=== PATIENT | female | born 1980 | race Two or more races ===

== ENCOUNTER → 2019-03-02 | Outpatient (CLI) | payer OTHER | END | disposition home or self-care (01) | LOC: PRENATAL 09:00 | DX: O36.80X1 Pregnancy with inconclusive fetal viability, fetus 1 (principal) ==

== ENCOUNTER → 2019-04-06 | Outpatient (CLI) | payer OTHER | END | disposition home or self-care (01) | LOC: PRENATAL 09:00 | DX: O35.3XX1 Maternal care for (suspected) damage to fetus from viral disease in mother, fetus 1 (principal); O09.512 Supervision of elderly primigravida, second trimester; O99.342 Other mental disorders complicating pregnancy, second trimester; Z3A.19 19 weeks gestation of pregnancy ==

== ENCOUNTER 2019-04-20 13:21 | Inpatient (IN) | payer OTHER ==
[~2019-04-20] VITALS: Ht 152.4 cm; Wt 75.3 kg
[2019-04-20] MEDS ORDERED: CLONAZEPAM2 MG PO (14:07)
[2019-04-20] MEDS ORDERED: PROSCAR5 MG PO (14:08)
[2019-04-20] MEDS ORDERED: PRENATAL TABLE1 EAC1 PO (14:09)
[2019-04-20] MEDS ORDERED: RESTORIL7.5 MG PO (14:09)
== END 2019-04-21 11:15 | disposition home or self-care (01) | DRG 806 ==
LOC: OB/GYN 13:21 → LDR 13:21 → OB/GYN 17:00
PROVIDERS: ADMIT Specialist
PROC: 10E0XZZ Delivery of Products of Conception, External Approach (ICD-10-PCS; principal; 2019-04-20 14:00)
DX: O60.02 Preterm labor without delivery, second trimester (principal); O72.0 Third-stage hemorrhage; Z37.1 Single stillbirth; Z3A.21 21 weeks gestation of pregnancy; O43.212 Placenta accreta, second trimester